=== PATIENT | female | born 1960 | race African-American/Black ===

== ENCOUNTER → 2018-08-30 | Outpatient (CLI) | payer MEDICARE, MEDICAID | END | disposition home or self-care (01) | LOC: RAD 14:50 | PROVIDERS: ATTEND Family Medicine | DX: M17.0 Bilateral primary osteoarthritis of knee (principal); M54.2 Cervicalgia | CPT/HCPCS: 72040; 73562 ==

== ENCOUNTER → 2018-11-30 | Outpatient (CLI) | payer MEDICARE, MEDICAID | END | disposition home or self-care (01) | LOC: MRI 11:01 | PROVIDERS: ATTEND Family Medicine | DX: M54.6 Pain in thoracic spine (principal) | CPT/HCPCS: 72146 ==

== ENCOUNTER 2023-04-26 22:48 | Emergency (ER) | payer MEDICARE, MEDICAID ==
[~2023-04-26] VITALS: Ht 157.5 cm; Wt 56.0 kg
[2023-04-26 23:06] VITALS: TEMP 98.6; O2SAT 99
[2023-04-27] MEDS: SODIUM CHLORIDE 0.9% 1,000 ML IV ONE (02:37)
[2023-04-27] MEDS: ONDANSETRON HCL 4MG/2ML INJ IV STA (02:37)
[2023-04-27 03:32] LABS: BASOPHILS % 0.6 % (0.0-2.0); EOSINOPHILS % 1.3 % (0.0-5.0); HEMATOCRIT. 37.8 % (36.0-48.0); HEMOGLOBIN. 12.3 g/dL (12.0-16.0); LYMPHOCYTES % 26.2 % (20.0-50.0); MEAN CORPUSCULAR HEMOGLOBIN 26.2 pg (28.0-32.0); MEAN CORPUSCULAR HGB CONC 32.6 g/dL (31.0-37.0); MEAN CORPUSCULAR VOLUME 80.3 fL (81.0-99.0); MEAN PLATELET VOLUME 11.3 fl (7.4-10.4); MONOCYTES % 8.8 % (2.0-8.0); NEUTROPHILS % 63.1 % (40.0-76.0); PLATELET 266 x1000/uL (130-400); RED BLOOD CELL COUNT 4.71 mill/uL (4.2-5.4); RED CELL DISTRIBUTION WIDTH 14.1 % (11.6-14.6); WHITE BLOOD COUNT 5.3 x1000/uL (4.5-11.0)
[2023-04-27 03:40] LABS: ALANINE AMINOTRANSFERASE 10 IU/L (10-49); ALBUMIN 4.8 g/dL (3.2-4.8); ASPARTATE AMINOTRANSFERASE 16 IU/L (<34); BILIRUBIN TOTAL 0.5 mg/dL (0.1-1.0); CALCIUM 10.2 mg/dL (8.7-10.4); CARBON DIOXIDE 26 mEq/L (21-32); CHLORIDE 99 mEq/L (98-107); CREATININE 1.1 mg/dL (0.6-1.0); GLUCOSE 262 mg/dL (70-105); PROTEIN TOTAL 7.5 g/dL (6.0-8.3); SODIUM 133 mEq/L (136-145); UREA NITROGEN BLOOD 20 mg/dL (9-23)
[2023-04-27] MEDS ORDERED: FAMO-135 MT (05:08)
[2023-04-27] MEDS ORDERED: LOPE2CAP MT (05:08)
[2023-04-27 06:17] VITALS: BP 133/78; PULSE 77; RESP 15
== END 2023-04-27 06:14 | disposition home or self-care (01) ==
LOC: ER 22:48
DX: K52.9 Noninfective gastroenteritis and colitis, unspecified (principal)
CPT/HCPCS: 99285; 36415; 74176; 96374; 96361; 80053; 83690; 85025; J2405; J7030

== ENCOUNTER 2023-05-26 03:16 | Emergency (ER) | payer MEDICARE, MEDICAID ==
[~2023-05-26] VITALS: Ht 160 cm; Wt 55.5 kg
[~2023-05-26 03:16] MED LIST: FAMO-135 MT; LOPE2CAP MT
[2023-05-26 03:58] VITALS: O2SAT 100
[2023-05-26 04:45] LABS: BASOPHILS % 0.5 % (0.0-2.0); EOSINOPHILS % 0.8 % (0.0-5.0); HEMATOCRIT. 37.2 % (36.0-48.0); MEAN CORPUSCULAR HGB CONC 32.3 g/dL (31.0-37.0); MEAN CORPUSCULAR VOLUME 80.4 fL (81.0-99.0); MONOCYTES % 4.7 % (2.0-8.0); PLATELET 225 x1000/uL (130-400); RED BLOOD CELL COUNT 4.62 mill/uL (4.2-5.4); RED CELL DISTRIBUTION WIDTH 14.2 % (11.6-14.6); WHITE BLOOD COUNT 8.7 x1000/uL (4.5-11.0)
[2023-05-26 04:55] LABS: CLARITY URINE CLEAR (CLEAR); COLOR URINE YELLOW (YELLOW); GLUCOSE URINE 3+ (NEGATIVE); KETONES URINE NEGATIVE (NEGATIVE); LEUKOCYTE ESTERASE URINE NEGATIVE (NEGATIVE); NITRITE URINE NEGATIVE (NEGATIVE); OCCULT BLOOD URINE NEGATIVE (NEGATIVE); PROTEIN URINE 1+ (NEGATIVE); SPECIFIC GRAVITY URINE 1.022 (1.005-1.030); UROBILINOGEN URINE 0.2 E.U./dL (0.2-1.0)
[2023-05-26 04:57] LABS: ALANINE AMINOTRANSFERASE 7 IU/L (10-49); ALBUMIN 4.6 g/dL (3.2-4.8); ASPARTATE AMINOTRANSFERASE 14 IU/L (<34); BILIRUBIN TOTAL 0.4 mg/dL (0.1-1.0); CALCIUM 9.3 mg/dL (8.7-10.4); CARBON DIOXIDE 24 mEq/L (21-32); CHLORIDE 100 mEq/L (98-107); CREATININE 1.2 mg/dL (0.6-1.0); GLUCOSE 396 mg/dL (70-105); POTASSIUM 4.2 mEq/L (3.5-5.1); PROTEIN TOTAL 7.3 g/dL (6.0-8.3); SODIUM 131 mEq/L (136-145); UREA NITROGEN BLOOD 25 mg/dL (9-23)
[2023-05-26 05:11] LABS: BACTERIA URINE TRACE; RBC URINE NONE SEEN /hpf (0-2); SQUAMOUS EPITHELIAL CELL URINE FEW /lpf (RARE/1+); WBC URINE 0-2 /hpf (0-2)
[2023-05-26] MEDS ORDERED: PANTOPRAZOLE SODIUM 40 MG/VIAL IV STA (07:38)
[2023-05-26] MEDS: SODIUM CHLORIDE 0.9% 1,000 ML IV ONE (09:22)
[2023-05-26] MEDS: ONDANSETRON HCL 4MG/2ML INJ IV ONE (09:23)
[2023-05-26] MEDS: PANTOPRAZOLE SODIUM 40 MG/VIAL IV SCH (09:33)
[2023-05-26] MEDS ORDERED: IPRATROPIUM/ALBUTEROL 0.5-3(2.5)MG/3ML NEB HHN PRN (12:15)
[2023-05-26] MEDS ORDERED: ACETAMINOPHEN 325MG TABLET PO PRN (12:15)
[2023-05-26] MEDS ORDERED: DEXTROSE 50% WATER 50ML SYRINGE IV PRN (12:15)
[2023-05-26] MEDS ORDERED: ONDANSETRON HCL 4MG/2ML INJ IV PRN (12:15)
[2023-05-26] MEDS ORDERED: DIPHENHYDRAMINE 50MG/ML VIAL IV PRN (12:15)
[2023-05-26] MEDS: SODIUM CHLORIDE 0.9% 1,000 ML IV SCH (12:36)
[2023-05-26] MEDS ORDERED: SODIUM CHLORIDE 0.9% 1,000 ML IV SCH (13:00)
[2023-05-26] MEDS: ENOXAPARIN 40MG/0.4ML SYR SUBCUT SCH (13:00)
[2023-05-26] MEDS: BLOOD SUGAR DIAGNOSTIC STRIP TEST SCH (13:26)
[2023-05-26] MEDS: INSULIN LISPRO 100 UNITS/ML SUBCUT SCH (14:01)
[2023-05-26 14:28] LABS: INR 0.9; PROTHROMBIN TIME 10.2 sec (9.6-11.0)
[2023-05-26 14:35] LABS: AMYLASE 130 IU/L (30-118); CALCIUM 8.8 mg/dL (8.7-10.4); CARBON DIOXIDE 22 mEq/L (21-32); CHLORIDE 104 mEq/L (98-107); CREATINE KINASE MB FRACTION 1.9 ng/mL (0.5-3.6); GLUCOSE 278 mg/dL (70-105); IRON 44 ug/dL (50-170); POTASSIUM 4.1 mEq/L (3.5-5.1); SODIUM 134 mEq/L (136-145); TOTAL IRON BINDING CAPACITY 271 ug/dl (250-425); TRIGLYCERIDE 152 mg/dL (0-150); UREA NITROGEN BLOOD 18 mg/dL (9-23)
[2023-05-26 14:45] LABS: TROPONIN I HIGH SENSITIVITY < 4 ng/L (3.0-34)
[2023-05-26 16:25] VITALS: BP 135/60; PULSE 74; RESP 16; TEMP 98.7
[2023-05-26] MEDS ORDERED: PANTOPRAZOLE SODIUM 40 MG/VIAL IV SCH (21:00)
== END 2023-05-26 16:26 | disposition left against medical advice (07) ==
LOC: ER 03:16 → CANBEDREQ 16:22 → ER 16:26
DX: E11.65 Type 2 diabetes mellitus with hyperglycemia (principal); K21.9 Gastro-esophageal reflux disease without esophagitis; N17.9 Acute kidney failure, unspecified; R11.0 Nausea; I10 Essential (primary) hypertension
CPT/HCPCS: 99285; 96374; 96361; 96375; 84478; 80053; 81003; 82150; 82553; 82728; 82962; 83036; 83880; 83540; 83550; 83690; 85025; 85610; 84484; 36415; 93005; 96372; 80048; J1815; J2405; C9113; J7030; J1650